=== PATIENT | female | born 1985 | race Caucasian/White ===

== ENCOUNTER 2023-06-19 08:00 | Outpatient (CLI) | payer OTHER ==
[2023-06-19 17:13] LABS: BILIRUBIN,URINE NEGATIVE (NEGATIVE); GLUCOSE, URINE (UA) NEGATIVE (NEGATIVE); KETONES,URINE (UA) NEGATIVE (NEGATIVE); LEUKOCYTE ESTERASE, URINE NEGATIVE (NEGATIVE); NITRITE,URINE NEGATIVE (NEGATIVE); OCCULT BLOOD,URINE NEGATIVE (NEGATIVE); PROTEIN,URINE NEGATIVE (NEGATIVE); UROBILINOGEN,URINE 0.2 (NORMAL) E.U./dL (NORMAL)
[2023-06-19 17:30] LABS: CREATININE,URINE 68.5 mg/dL; PROTEIN/CREATININE RATIO,URINE 0.1 (<=0.2)
[2023-06-19 17:45] LABS: BACTERIA,URINE Rare /HPF (None Seen); CLARITY,URINE CLEAR (CLEAR); RBC,URINE None Seen /HPF (0-5); SQUAMOUS EPITHELIAL CELL,UR MOD Squamous (<= Few); WBC,URINE 0-3 /HPF (0-5)
== END 2023-06-19 23:59 | disposition home or self-care (01) ==
LOC: LAB.WC 08:00
PROVIDERS: ATTEND Obstetrics & Gynecology
DX: Z34.90 Encounter for supervision of normal pregnancy, unspecified, unspecified trimester (principal)
CPT/HCPCS: 81001; 82570; 84156; 87086

== ENCOUNTER 2023-06-20 09:56 | Outpatient (CLI) | payer OTHER ==
[2023-06-20 12:08] LABS: BASOPHILS % (AUTO) 0.5 %; EOSINOPHILS % (AUTO) 0.5 %; HCT - HEMATOCRIT 40.5 % (37.0-47.0); HGB - HEMOGLOBIN 12.8 g/dL (12.0-16.0); LYMPHOCYTES # (AUTO) 1.5 10^3/uL (1.5-3.5); LYMPHOCYTES % (AUTO) 26.6 %; MEAN CORPUSCULAR HEMOGLOBIN 29.4 pg (27.0-31.0); MEAN CORPUSCULAR HGB CONC 31.6 g/dL (32.0-36.0); MEAN CORPUSCULAR VOLUME 93.1 fL (81.0-99.0); MEAN PLATELET VOLUME 11.4 fL (7.9-10.8); MONOCYTES # (AUTO) 0.4 10^3/uL (0.0-1.0); MONOCYTES % (AUTO) 7.6 %; NEUTROPHILS # (AUTO) 3.6 10^3/uL (1.5-6.6); NEUTROPHILS % (AUTO) 64.4 %; PLT - PLATELET COUNT 201 10^3/uL (130-450); RED BLOOD COUNT 4.35 10^6/uL (4.20-5.40); RED CELL DISTRIBUTION WIDTH 11.9 % (12.0-15.0); WHITE BLOOD COUNT 5.5 x10^3/uL (4.8-10.8)
[2023-06-20 12:25] LABS: ESTIMATED AVERAGE GLUCOSE 114 mg/dL (70-100); HEMOGLOBIN A1c% 5.6 % (4.27-6.07)
[2023-06-21 06:10] LABS: HBsAG SCREEN Negative (Negative)
[2023-06-21 08:11] LABS: HIV SCREEN 4TH GENERATION Non Reactive (Non Reactive); RPR Non Reactive (Non Reactive)
[2023-06-21 12:09] LABS: VARICELLA-ZOSTER AB IGG 1004 index (Immune >165)
== END 2023-06-20 09:57 | disposition home or self-care (01) ==
LOC: LAB.N 09:56
PROVIDERS: ATTEND Obstetrics & Gynecology
DX: Z34.90 Encounter for supervision of normal pregnancy, unspecified, unspecified trimester (principal)
CPT/HCPCS: 36415; 83036; 85025; 86592; 86762; 86787; 86803; 86850; 86900; 86901; 87340; 87389

== ENCOUNTER 2023-06-22 11:11 | Outpatient (CLI) | payer OTHER | END 2023-06-22 11:12 | disposition home or self-care (01) | LOC: LAB.N 11:11 | PROVIDERS: ATTEND Obstetrics & Gynecology | DX: Z32.01 Encounter for pregnancy test, result positive (principal) | CPT/HCPCS: 36415; 84702 ==

== ENCOUNTER 2023-06-26 12:34 | Outpatient (CLI) | payer OTHER | END 2023-06-26 12:35 | disposition home or self-care (01) | LOC: LAB.N 12:34 | PROVIDERS: ATTEND Obstetrics & Gynecology | DX: Z32.01 Encounter for pregnancy test, result positive (principal) | CPT/HCPCS: 36415; 84702 ==

== ENCOUNTER 2023-07-11 08:46 | Outpatient (CLI) | payer OTHER ==
--- NOTE | 2023-07-13 11:20 | Ultrasound Report ---
PROCEDURE: OB 1st Trimester w/TV INDICATIONS: POSITIVE TEST OUTSIDE/PRIOR DATING DATA: Last menstrual period (LMP): 05/10/2023. LMP-based estimated date of delivery (ROGE): 02/14/2024. First dating scan (date and location): Not available. Estimated date of delivery (ROGE) from first dating scan: Not available. TECHNIQUE: Real-time scanning was performed of the fetus and maternal pelvic organs, with image documentation. Endovaginal scanning was also performed to better visualize the fetus and maternal ovaries. COMPARISON: None. FINDINGS: Intrauterine gestational sac present. No pole or yolk sac. Based on MGSD, the estima thomas gestational age is 6 weeks 4 days. Other: No perigestational fluid collection. Measurement variability in dating: +/- 4 weeks by LMP, +/- 7 days by mean sac diameter (use before 6 weeks gestation if crown-rump length not able to be measured), +/- 5 days by crown-rump length (6-12 weeks gestation). Maternal organs: Ovaries appear within normal limits. There is a corpus luteal cyst in the left ovar y measuring 2.3 cm. IMPRESSION: 1. There is an intrauterine gestational sac but no pole or yolk sac. The ultrasound findings a re highly suspicious for blighted ovum. Recommend clinical correlation. Consider follow-up ultrasound if clinically indicated. 2. There is a corpus luteal cyst in the left ovary. Reviewed by: Tina Walker MD on 07/13/2023 11:18 AM PDT Approved by: Tina Walker MD on 07/13/2023 11:18 AM PDT Station ID: [id number]
== END 2023-07-11 08:47 | disposition home or self-care (01) ==
LOC: DI 08:46
PROVIDERS: ATTEND Obstetrics & Gynecology
DX: O34.81 Maternal care for other abnormalities of pelvic organs, first trimester (principal); N83.12 Corpus luteum cyst of left ovary; Z3A.01 Less than 8 weeks gestation of pregnancy

== ENCOUNTER 2023-07-20 09:29 | Day surgery (SDC) | payer OTHER ==
[2023-07-20] MEDS: LACTATED RINGERS 1,000 ML IV ONE (09:48)
[2023-07-20] MEDS: DOXYCYCLINE 100 MG TABLET PO ONE (10:08)
[2023-07-20] MEDS ORDERED: DEXAMETHASONE 4 MG/ML VIAL ONE (11:46)
[2023-07-20] MEDS ORDERED: ONDANSETRON 4 MG/2 ML VIAL ONE (11:46)
[2023-07-20] MEDS ORDERED: PROPOFOL 200 MG/20 ML VIAL IVP ONE (11:46)
[2023-07-20] MEDS ORDERED: LIDOCAINE-MPF 2% 5 ML VIAL ONE (11:46)
[2023-07-20] MEDS ORDERED: MIDAZOLAM 2 MG/2 ML VIAL ONE (11:47)
[2023-07-20] MEDS ORDERED: fentaNYL 100 MCG/2 ML VIAL ONE (11:50)
[2023-07-20] MEDS ORDERED: fentaNYL 100 MCG/2 ML VIAL IVP PRN (11:57)
[2023-07-20] MEDS ORDERED: ATROPINE ABBOJECT 1 MG/10 ML SYRINGE IVP PRN (11:57)
[2023-07-20] MEDS ORDERED: ePHEDrine 50 MG/ML VIAL IVP PRN (11:57)
[2023-07-20] MEDS ORDERED: ONDANSETRON 4 MG/2 ML VIAL IVP PRN (11:57)
[2023-07-20] MEDS ORDERED: NALOXONE 0.4 MG/ML VIAL IVP PRN (11:57)
[2023-07-20] MEDS ORDERED: HYDROmorphone 0.5 MG/0.5 ML SYRINGE IVP PRN (11:57)
[2023-07-20] MEDS ORDERED: MORPHINE 2 MG/ML CARPUJECT IVP PRN (11:57)
[2023-07-20] MEDS ORDERED: LACTATED RINGERS 1,000 ML IV SCH (12:00)
--- NOTE | 2023-07-20 12:01 | ANESTHESIA ---
Pre-Anesthesia VS, & Labs - Diagnosis Missed - Procedure D and C Height: 5 ft 4 in Weight (kg): 78.4 kg Body Mass Index: 29.6 BMI Classification: Overweight - Is Patient ?: Yes (Missed Ab) Home Medications and Allergies Home Medications: Ambulatory Orders No Known Home Medications 07/19/23 Active Medications Atropine Sulfate (Atropine Abboject 1 Mg/10 Ml Syringe) 0.5 mg IVP Q5M PRN PRN Reason: Bradycardia Stop: 07/21/23 11:57 Ephedrine Sulfate (Ephedrine 50 Mg/Ml Vial) 10 mg IVP Q5M PRN PRN Reason: HYPOTENSION Stop: 07/21/23 11:57 Fentanyl (Fentanyl 100 Mcg/2 Ml Vial) 25 - 50 mcg IVP Q5M PRN PRN Reason: BREAKTHROUGH PAIN (2nd Choice) Stop: 07/21/23 11:57 Hydromorphone HCl (Hydromorphone 0.5 Mg/0.5 Ml Syringe) 0.2 - 0.6 mg IVP Q5M PRN PRN Reason: PAIN (First Choice) Stop: 07/21/23 11:57 Lactated Ringer's (Lr) 1,000 mls @ 100 mls/hr IV .Q10H TORSTEN Stop: 07/20/23 21:59 Morphine Sulfate (Morphine 2 Mg/Ml Carpuject) 2 - 4 mg IVP Q5M PRN PRN Reason: PAIN (3rd Choice) Stop: 07/21/23 11:57 Naloxone HCl (Naloxone 0.4 Mg/Ml Vial) 0.1 mg IVP Q2M PRN PRN Reason: RESP RATE <8 Stop: 07/21/23 11:57 Ondansetron HCl (Ondansetron 4 Mg/2 Ml Vial) 4 mg IVP ONCE PRN PRN Reason: N/V (First Choice) Stop: 07/21/23 11:57 No Known Home Medications 07/19/23 Allergies/Adverse Reactions: Allergies Allergy/AdvReac Type Severity Reaction Status Date / Time No Known Drug Allergies Allergy Verified 07/19/23 13:08 Anes History & Medical History - Anesthetic History Anesthesia Complications: reports: No previous complications Family history of Anesthesia Complications: Denies Family history of Malignant Hyperthermia: Denies - Medical History Cardiovascular: reports: None Pulmonary: reports: None Gastrointestinal: reports: GERD Urinary: reports: None Musculoskeletal: reports: None Endocrine/Autoimmune: reports: None Skin: reports: None Exam General: Alert, Oriented x3, No acute distress Dental: WNL Mouth Opening: Greater than 4 Fingerbreadths Mallampati classification: II Thyromental Distance: 4-6 cm Respiratory: Lungs clear, Normal breath sounds, No respiratory distress, No accessory muscle use Cardiovascular: Regular rate Extremities: No clubbing Mental/Cognitive Status: Alert/Oriented X3 Cognitive Status: Within normal limits Plan Anesthesia Type: General Consent for Procedure(s) Verified and Reviewed: Yes Code Status: Attempt Resuscitation ASA classification: 2-Mild systemic disease Is this case an emergency?: No
[2023-07-20] MEDS ORDERED: KETOROLAC 30 MG/ML VIAL ONE (12:15)
[2023-07-20] MEDS ORDERED: diphenhydrAMINE INJ 50 MG/ML VIAL ONE (12:15)
[2023-07-20] MEDS: LACTATED RINGERS 600 ML IV ONE (12:30)
[2023-07-20 12:47] VITALS: O2SAT 100
--- NOTE | 2023-07-20 12:59 | OPERATIVE REPORT ---
Operative Report - General Procedure Date: 07/20/23 Planned Procedure: suction D&C to empty uterus of nonviable Pre-Op Diagnosis: missed ab Procedure Performed: same Post Op Diagnosis: missed ab - Procedure Note Primary Surgeon: Keysha Newton MD Secondary Surgeon: none Anesthesia Provider: Lamar Trent CRNA Anesthesia Technique: General LMA Pathology: products of conception IV Fluids (mL): 300 Estimated Blood Loss (mL): 25 Urine Output (mL): 0 Indications: missed , baby never developed. Findings: 8 cm uterus with products of conception Complications: none - Other Other Information/Narrative: Missed ab diagnosed by ultrasound. A positive blood type. Options discussed. Decided that she wished D&C to take care of this. Consents signed. Doxycycline 200 mg given in pre-op. Brought to OR. General LMA anesthesia administered. legs in Ezra type stirrups. prepped and draped. Exam under anesthesia done. speculum and tenaculum placed. 8 mm flexible suction curette placed into uterus without need for dilation. Suction turned on. Uterus emptied with gentle movement of curette. Curette withdrawn and gentle sharp curettage done. suction replaced and no more tissue. Uterus felt empty. Instruments removed. Patient awakened and brought to recovery room in stable condition. no complications. will discharge home later today.
[2023-07-20 13:27] VITALS: BP 119/59
--- NOTE | 2023-07-20 16:07 | ANESTHESIA POST OP EVALUATION ---
Anesthesia Post Eval - Post Anesthesia Eval Vitals: Last Vital Signs Temp 37.1 C 07/20/23 13:03 Pulse 62 07/20/23 13:10 Resp 16 07/20/23 13:10 BP 119/59 L 07/20/23 13:10 Pulse Ox 100 07/20/23 13:10 O2 Flow Rate CV Function Including HR & BP: Stable Pain Control: Satisfactory Nausea & Vomiting: Negative Mental Status: Baseline Respiratory Status: Airway Patent Hydration Status: Satisfactory Anesthesia Complications: None
== END 2023-07-20 09:30 | disposition home or self-care (01) ==
LOC: SDS 09:29
PROVIDERS: ATTEND Obstetrics & Gynecology
PROC: 10D17ZZ Extraction of Products of Conception, Retained, Via Natural or Artificial Opening (ICD-10-PCS; principal; 2023-07-20 10:45)
DX: O02.1 Missed abortion (principal)
CPT/HCPCS: 59820; A9270; J1200; J7120